=== PATIENT | male | born 1985 | race African-American/Black ===

== ENCOUNTER 2016-05-13 12:40 | Emergency (ER) | payer OTHER ==
[~2016-05-13] VITALS: Ht 182.9 cm; Wt 62.0 kg
[2016-05-13 12:46] VITALS: Ht 182.9 cm; Wt 62.0 kg
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
--- NOTE | 2016-05-13 14:58 | RADRPT ---
PROCEDURE: XR Chest. CLINICAL INDICATION: Trauma. TECHNIQUE: Single frontal view of the chest was obtained COMPARISON: None FINDINGS: The heart is normal in size. The left-sided aorta is normal. The trachea and hilar structures are normal. The lungs are clear. The diaphragms are flattened. No pleural effusion is noted. The bon y elements are normal. IMPRESSION: 1. Pulmonary hyperinflation. 2. No evidence of a pulmonary contusion, pneumothorax or rib fracture. 3. There is no evidence of active cardiopulmonary disease. RPTAT:AAJJ Physician Nisa Date Time Electronically viewed and signed by Physician Nisa on 05/13/2016 14:58 /
[2016-05-13] MEDS ORDERED: IBUP-1542 PO (15:25)
[2016-05-13] MEDS ORDERED: HYDROCODONE/APAP (5/325) TAB PO ONE (16:00)
--- NOTE | 2016-05-13 16:37 | RADRPT ---
PROCEDURE: XR Lumbar Spine. CLINICAL INDICATION: Pain. TECHNIQUE: AP, lateral and cone-down lateral view of the lumbar spine were obtained. COMPARISON: No. FINDINGS: The 5 lumbar vertebra appear anatomically aligned. The intervertebral disk spaces neural canal and nerve root foramina are normal. There is straightening of the lumbar curvature. The sacrum and SI j oints are normal. IMPRESSION: 1. Straightening of the lumbar curvature. RPTAT:AAJJ Physician Nisa Date Time Electronically viewed and signed by Micha Russell Physician on 05/13/2016 16:37 /
[2016-05-13 16:50] VITALS: BP 124/68; PULSE 68; RESP 18; TEMP 98.3
== END 2016-05-13 16:50 | disposition home or self-care (01) ==
LOC: FTE 12:40
DX: S20.212A Contusion of left front wall of thorax, initial encounter (principal); S39.012A Strain of muscle, fascia and tendon of lower back, initial encounter; F17.210 Nicotine dependence, cigarettes, uncomplicated; V43.52XA Car driver injured in collision with other type car in traffic accident, initial encounter
CPT/HCPCS: 71010; 72100; Z7610